=== PATIENT | female | born 1995 | race Hispanic/Latino ===

== ENCOUNTER 2025-03-07 05:44 | Inpatient (IN) | payer BC ==
[2025-03-07] MEDS ORDERED: Carboprost 250 MCG/ML AMP IM PRN (08:16)
[2025-03-07] MEDS ORDERED: Lidocaine 1% (PF) 30 ML VIAL SC PRN (08:16)
[2025-03-07] MEDS ORDERED: Acetaminophen 500 MG TAB PO PRN (08:16)
[2025-03-07] MEDS ORDERED: Diphenoxylate HCl/Atropine Tablet PO PRN (08:16)
[2025-03-07] MEDS ORDERED: Ibuprofen 800 MG TAB PO PRN (08:16)
[2025-03-07] MEDS ORDERED: HYDROcodone/Acetaminophen 5/325 mg Tablet PO PRN (08:16)
[2025-03-07] MEDS ORDERED: Tranexamic Acid 1,000 MG/10 ML VIAL IVP PRN (08:16)
[2025-03-07] MEDS ORDERED: hydrALAZINE 20 MG/ML VIAL SLOW IVP PRN (08:16)
[2025-03-07] MEDS ORDERED: Ondansetron PF 4 MG/2 ML Vial IVP PRN ×4 (08:16→11:43)
[2025-03-07] MEDS ORDERED: Methylergonovine 0.2 MG/ML VIAL IM PRN (08:16)
[2025-03-07 08:19] VITALS: BMI 38.2
[2025-03-07] MEDS ORDERED: Oxytocin 30 units/NS 500 ML 500 ML IV SCH ×2 (08:30)
[2025-03-07 08:36] LABS: Hematocrit 36.6 % (34.9-44.5); Hemoglobin 12.3 g/dL (12.0-15.5); Mean Corpuscular Hemoglobin 28.1 pg (27.0-33.0); Mean Corpuscular Volume 83.8 fL (81.6-98.3); Platelet Count 203 10x3/uL (150-450); Red Blood Cell (RBC) Count 4.37 10x6/uL (3.90-5.03); White Blood Cell (WBC) Count 9.79 10x3/uL (3.5-10.5)
[2025-03-07 09:05] LABS: Syphilis Antibody Index 0.08 S/CO (<1.00 Non-Reactive)
[2025-03-07 09:07] LABS: Hep B Surf Ag - L&D Non-Reactive S/CO (NonReactive)
[2025-03-07] MEDS: fentaNYL/Ropivacaine Epidural 100 ML ONE (09:13)
[2025-03-07] MEDS ORDERED: diphenhydrAMINE 50 MG/ML VIAL IVP PRN ×2 (09:37→11:43)
[2025-03-07] MEDS ORDERED: Acetaminophen 325 MG TAB PO PRN (09:37)
[2025-03-07] MEDS ORDERED: Communication Order-Pharmacy FS SCH ×2 (09:45→11:45)
[2025-03-07] MEDS ORDERED: fentaNYL 2 mcg/Ropivacaine 0.2% Epidural 100 ML CADD EPIDURAL SCH (09:45)
[2025-03-07 11:23] LABS: Analyzer IN Cardio CS NICU; Critical Notified By: Udy, RRT; RapidComm Collect By Meghan, RN
[2025-03-07 11:24] LABS: Analyzer IN Cardio CS NICU; Critical Notified By: Udy, RRT; RapidComm Collect By Meghan, RN; pH (Cord, venous) 7.225 (7.250-7.350)
[2025-03-07] MEDS ORDERED: Meperidine HCl/PF 25 MG (1 mL) VIAL SLOW IVP PRN (11:43)
[2025-03-07] MEDS ORDERED: Ketorolac Tromethamine 30 MG (1 mL) VIAL IVP SCH (11:45)
[2025-03-07] MEDS ORDERED: Ibuprofen 800 MG TAB PO SCH (14:00)
[2025-03-07] MEDS ORDERED: Lidocaine 2% MPF 10 ML AMP (For Epidural Use) ONE (17:00)
[2025-03-07] MEDS: Azithromycin 500 MG VIAL ONE (17:10)
[2025-03-07] MEDS: Oxytocin 30 units/NS 500 ML 500 ML ONE ×2 (17:10→17:11)
[2025-03-07] MEDS: Carboprost 250 MCG/ML AMP ONE (17:11)
[2025-03-07] MEDS: CEFAZOLIN 2 GM VIAL ONE (17:11)
[2025-03-07] MEDS: Tranexamic Acid 1,000 MG/10 ML VIAL ONE (17:11)
[2025-03-07] MEDS: Oxytocin 10 UNITS/ML VIAL ONE (17:11)
[2025-03-07] MEDS: PHENYLEPHRINE-NS 100 MCG/ML 10 ML SYRINGE ONE (17:11)
[2025-03-07] MEDS: Methylergonovine 0.2 MG/ML VIAL ONE (17:11)
[2025-03-07] MEDS: Dexamethasone 10 MG/ML VIAL ONE (17:11)
[2025-03-07] MEDS: Ondansetron PF 4 MG/2 ML Vial ONE (17:11)
[2025-03-07] MEDS: Erythromycin Base 0.5% Oint 1 GM TUBE ONE (17:12)
[2025-03-07] MEDS: Boostrix 0.5 ML (Tdap) VIAL (>/=7 yrs of age) IM ONE (17:12)
[2025-03-07] MEDS: Hepatitis B Vaccine 10 MCG/0.5 ML SYR ONE (17:12)
[2025-03-07] MEDS: Ketorolac Tromethamine 30 MG (1 mL) VIAL IVP PRN (21:19)
[2025-03-07] MEDS: Ferrous Sulfate 325 MG TAB PO SCH (23:17)
[2025-03-08 06:10] LABS: Hematocrit 32.4 % (34.9-44.5); Hemoglobin 10.6 g/dL (12.0-15.5); Mean Corpuscular Hemoglobin 27.7 pg (27.0-33.0); Mean Corpuscular Volume 84.8 fL (81.6-98.3); Platelet Count 192 10x3/uL (150-450); Red Blood Cell (RBC) Count 3.82 10x6/uL (3.90-5.03); White Blood Cell (WBC) Count 14.33 10x3/uL (3.5-10.5)
[2025-03-08] MEDS: Ibuprofen 800 MG TAB PO SCH (15:02)
[2025-03-08] MEDS: HYDROcodone/Acetaminophen 5/325 mg Tablet PO PRN (15:03)
[2025-03-09] MEDS: HYDROcodone/Acetaminophen 5/325 mg Tablet PO PRN (15:23)
[2025-03-09 20:08] VITALS: TEMP 98.1
[2025-03-10 08:02] VITALS: BP 108/65
[2025-03-10] MEDS: Simethicone Chewable 80 MG TAB PO PRN (08:26)
== END 2025-03-10 13:00 | disposition home or self-care (01) | DRG 788 ==
LOC: CSHLD 05:44 → CSHPP 16:45 → UNDODISIN 03-09 16:05
PROVIDERS: ADMIT Student in an Organized Health Care Education/Training Program; ATTEND Student in an Organized Health Care Education/Training Program
PROC: 10D00Z1 Extraction of Products of Conception, Low, Open Approach (ICD-10-PCS; principal; 2025-03-07)
PROC: 10907ZC Drainage of Amniotic Fluid, Therapeutic from Products of Conception, Via Natural or Artificial Opening (ICD-10-PCS; 2025-03-07)
DX: O76 Abnormality in fetal heart rate and rhythm complicating labor and delivery (principal); Z37.0 Single live birth; Z3A.39 39 weeks gestation of pregnancy
CPT/HCPCS: 36415; 36430; 51702; 82805; 85027; 86780; 86850; 86900; 86901; 87340; J1100; J1885; J2250; J2274; J2405; J2590; J3490